=== PATIENT | female | born 1995 | race Caucasian/White ===

== ENCOUNTER 2018-01-23 23:26 | Emergency (ER) | payer BC ==
[~2018-01-23] VITALS: Ht 152.4 cm; Wt 83.9 kg
[2018-01-23 23:36] VITALS: BP_SYST 128
[2018-01-24] MEDS ORDERED: cefTRIAXone 1 GM IVPB PREMIX 50 ML IV ONE (00:15)
[2018-01-24 01:08] VITALS: BP_SYST 125
== END 2018-01-24 01:08 | disposition home or self-care (01) ==
LOC: SED 23:26
DX: T81.89XA Other complications of procedures, not elsewhere classified, initial encounter (principal); L03.116 Cellulitis of left lower limb; Z88.0 Allergy status to penicillin; Y83.8 Other surgical procedures as the cause of abnormal reaction of the patient, or of later complication, without mention of misadventure at the time of the procedure; Y92.89 Other specified places as the place of occurrence of the external cause
CPT/HCPCS: 36415; 87040; 96365; 99284; J0696